=== PATIENT | female | born 1960 | race Hispanic/Latino ===

== ENCOUNTER 2018-09-29 20:41 | Emergency (ER) | payer SELFPAY ==
[2018-09-29 21:30] LABS: APPEARANCE,URINE Clear (CLEAR); BILIRUBIN,URINE Negative (NEGATIVE); COLOR,URINE Yellow (YELLOW); GLUCOSE, URINE (UA) >=1000 mg/dL (NEGATIVE); KETONES,URINE Trace mg/dL (NEGATIVE); LEUKOCYTE ESTERASE ,URINE Negative (NEGATIVE); NITRATE,URINE Negative (NEGATIVE); OCCULT BLOOD,URINE Negative (NEGATIVE); PH,URINE 5.5 (5.0-8.0); PROTEIN,URINE Trace (NEGATIVE); UROBILINOGEN,URINE 0.2 mg/dL (0.2-1.0)
[2018-09-29] MEDS ORDERED: SODIUM CHLORIDE 0.9% 1000ML 2,000 ML IV ONE (21:33)
[2018-09-29] MEDS ORDERED: ACETAMINOPHEN EXTRA STRENGTH 500 MG TABLET ONE (21:34)
[2018-09-29] MEDS ORDERED: SODIUM CHLORIDE 0.9% 100 ML IV ONE (21:34)
[2018-09-29] MEDS ORDERED: CEFTRIAXONE SODIUM 1 GM ONE (21:34)
[2018-09-29 21:38] LABS: BACTERIA,URINE Few /HPF (None Seen); RBC,URINE 0-1 /HPF (0-1); SQUAMOUS EPITHELIAL CELL,UR 0-2 /HPF (0-2); WBC,URINE 0-1 /HPF (0-1)
[2018-09-29 21:41] LABS: BASOPHILS % (AUTO) 0.3 % (0.0-5.0); HEMATOCRIT 35.1 % (36-48); LYMPHOCYTES % (AUTO) 13.8 % (21.0-51.0); MEAN CORPUSCULAR HEMOGLOBIN 30.1 pg (27.0-33.0); MEAN CORPUSCULAR HGB CONC 34.8 g/dL (32.0-36.0); MEAN CORPUSCULAR VOLUME 86.6 fL (79-99); MONOCYTES % (AUTO) 7.4 % (3.0-13.0); NEUTROPHILS % (AUTO) 78.5 % (40.0-77.0); PLATELET COUNT (AUTO) 196 K/uL (130-400); RED BLOOD CELL COUNT(AUTO) 4.05 MIL/uL (4.00-5.50); RED CELL DISTRIBUTION WIDTH 12.1 % (11.0-15.5); WHITE BLOOD COUNT (AUTO) 7.9 K/uL (4.8-10.8)
[2018-09-29 21:42] LABS: RAPID GROUP A STREP NEGATIVE (NEGATIVE)
[2018-09-29 21:50] LABS: INR 0.98 (0.85-1.15); PARTIAL THROMBOPLASTIN TIME 30.3 SEC (26.3-35.5); PROTHROMBIN TIME 10.3 SEC (9.6-11.6)
[2018-09-29 21:56] LABS: CARBON DIOXIDE 24 mmol/L (21-32); CHLORIDE 98 mmol/L (101-111); CREATININE 0.9 mg/dL (0.5-1.5); GLOMERULAR FILTR. RATE CALC 69 mL/min (>60); GLUCOSE,RANDOM 289 mg/dL (70-105); POTASSIUM 3.8 mmol/L (3.5-5.1); SODIUM SERUM 132 mmol/L (136-145); UREA NITROGEN, BLOOD 15 mg/dL (7-18)
[2018-09-29 22:16] LABS: ALANINE AMINOTRANSFERASE 30 U/L (12-78); ALBUMIN 3.7 g/dL (3.5-5.0); ASPARTATE AMINOTRANSFERASE 21 U/L (10-37); BILIRUBIN,TOTAL 0.6 mg/dL (0.2-1.0); CREATINE KINASE, TOTAL 37 U/L (21-232); MYOGLOBIN 21 ng/mL (10-92); TOTAL PROTEIN, SERUM 7.8 g/dL (6.0-8.3); TROPONIN I < 0.04 ng/mL (0.00-0.06)
[2018-09-29] MEDS ORDERED: IBUPROFEN 600 MG TABLET ONE (23:03)
== END 2018-09-30 00:33 | disposition home or self-care (01) ==
LOC: EDH 20:41
DX: J11.1 Influenza due to unidentified influenza virus with other respiratory manifestations (principal); E11.9 Type 2 diabetes mellitus without complications; I11.0 Hypertensive heart disease with heart failure; I50.9 Heart failure, unspecified; E78.5 Hyperlipidemia, unspecified; E07.9 Disorder of thyroid, unspecified; F32.9 Major depressive disorder, single episode, unspecified; Z88.8 Allergy status to other drugs, medicaments and biological substances; Z90.710 Acquired absence of both cervix and uterus
CPT/HCPCS: 36415 ×2; 71045; 80053; 81001; 82550; 83605; 83874; 84484; 85025; 85610; 85730; 87040 ×2; 87088; 87804 ×2; 87880; 93005; 96374; 99285; J0696; J7030

== ENCOUNTER 2018-10-02 14:58 | Emergency (ER) | payer SELFPAY ==
[2018-10-02] MEDS ORDERED: ACETAMINOPHEN EXTRA STRENGTH 500 MG TABLET ONE (15:25)
[2018-10-02 15:31] LABS: BASOPHILS % (AUTO) 0.7 % (0.0-5.0); HEMATOCRIT 32.3 % (36-48); LYMPHOCYTES % (AUTO) 16.8 % (21.0-51.0); MEAN CORPUSCULAR HEMOGLOBIN 30.3 pg (27.0-33.0); MEAN CORPUSCULAR HGB CONC 35.7 g/dL (32.0-36.0); MEAN CORPUSCULAR VOLUME 84.7 fL (79-99); MONOCYTES % (AUTO) 5.5 % (3.0-13.0); PLATELET COUNT (AUTO) 176 K/uL (130-400); RED BLOOD CELL COUNT(AUTO) 3.81 MIL/uL (4.00-5.50); RED CELL DISTRIBUTION WIDTH 12.2 % (11.0-15.5); WHITE BLOOD COUNT (AUTO) 4.1 K/uL (4.8-10.8)
[2018-10-02 15:46] LABS: CREATININE 0.9 mg/dL (0.5-1.5); POTASSIUM 3.5 mmol/L (3.5-5.1)
[2018-10-02 15:47] LABS: INR 0.96 (0.85-1.15); PARTIAL THROMBOPLASTIN TIME 32.6 SEC (26.3-35.5); PROTHROMBIN TIME 10.1 SEC (9.6-11.6)
[2018-10-02 15:51] LABS: ALBUMIN 3.6 g/dL (3.5-5.0); BILIRUBIN,TOTAL 0.7 mg/dL (0.2-1.0); TOTAL PROTEIN, SERUM 7.9 g/dL (6.0-8.3)
[2018-10-02] MEDS ORDERED: SODIUM CHLORIDE 0.9% 1000ML 1,000 ML IV ONE (16:26)
== END 2018-10-02 22:06 | disposition home or self-care (01) ==
LOC: EDH 14:58
DX: R50.9 Fever, unspecified (principal); R05 Cough; M79.18 Myalgia, other site; I11.0 Hypertensive heart disease with heart failure; E11.9 Type 2 diabetes mellitus without complications; I50.9 Heart failure, unspecified; E07.9 Disorder of thyroid, unspecified; E78.5 Hyperlipidemia, unspecified; F32.9 Major depressive disorder, single episode, unspecified
CPT/HCPCS: 36415; 71045; 80053; 82550; 83605; 84484 ×2; 85025; 85610; 85730; 86757; 87040 ×2; 87804 ×2; 99285; J7030

== ENCOUNTER 2021-09-07 20:40 | Emergency (ER) | payer OTHER ==
[~2021-09-07] VITALS: Ht 154.9 cm; Wt 63.5 kg
[2021-09-07 21:18] LABS: BASOPHILS % (AUTO) 0.4 % (0.0-5.0); EOSINOPHILS % (AUTO) 0.9 % (0.0-8.0); HEMATOCRIT 35.4 % (36-48); LYMPHOCYTES % (AUTO) 20.3 % (21.0-51.0); MEAN CORPUSCULAR HEMOGLOBIN 29.2 pg (27.0-33.0); MEAN CORPUSCULAR HGB CONC 32.5 g/dL (32.0-36.0); MEAN CORPUSCULAR VOLUME 89.8 fL (79-99); MONOCYTES % (AUTO) 7.7 % (3.0-13.0); NEUTROPHILS % (AUTO) 70.1 % (40.0-77.0); PLATELET COUNT (AUTO) 272 K/uL (130-400); RED BLOOD CELL COUNT(AUTO) 3.94 MIL/uL (4.00-5.50); RED CELL DISTRIBUTION WIDTH 12.3 % (11.0-15.5); WHITE BLOOD COUNT (AUTO) 10.8 K/uL (4.8-10.8)
[2021-09-07 21:28] LABS: CREATININE 0.9 mg/dL (0.5-1.5); POTASSIUM 4.2 mmol/L (3.5-5.1)
[2021-09-07 21:32] LABS: APPEARANCE,URINE Clear (CLEAR); BILIRUBIN,URINE Negative (NEGATIVE); COLOR,URINE Yellow (YELLOW); GLUCOSE, URINE (UA) >=1000 mg/dL (NEGATIVE); KETONES,URINE Negative (NEGATIVE); LEUKOCYTE ESTERASE ,URINE Negative (NEGATIVE); NITRATE,URINE Negative (NEGATIVE); OCCULT BLOOD,URINE Negative (NEGATIVE); PROTEIN,URINE Negative (NEGATIVE); UROBILINOGEN,URINE 0.2 mg/dL (0.2-1.0)
[2021-09-07 21:32] LABS: ALBUMIN 4.2 g/dL (3.5-5.0); BILIRUBIN,TOTAL 0.3 mg/dL (0.2-1.0); TOTAL PROTEIN, SERUM 7.5 g/dL (6.0-8.3)
[2021-09-07 21:43] LABS: BACTERIA,URINE None Seen /HPF (None Seen); MUCUS,URINE Rare LPF (None Seen); RBC,URINE 0-1 /HPF (0-1); SQUAMOUS EPITHELIAL CELL,UR Rare /HPF (0-2); WBC,URINE 0-1 /HPF (0-1)
[2021-09-07] MEDS ORDERED: 0.9%NACL 1000ML 1,000 ML IV ONE (22:30)
[2021-09-07] MEDS ORDERED: DiphenhydrAMINE HCL 50 MG/ML VIAL IV ONE (22:30)
[2021-09-07] MEDS ORDERED: ONDANSETRON 4MG INJ IVP ONE (22:30)
[2021-09-07] MEDS ORDERED: ONDA4TAB10 PO (23:59)
[2021-09-07] MEDS ORDERED: METO-296 PO (23:59)
[2021-09-07] MEDS ORDERED: MECL-160 PO (23:59)
[2021-09-08 00:07] VITALS: BP 136/74
== END 2021-09-08 00:26 | disposition home or self-care (01) ==
LOC: EDH 20:40
DX: E86.9 Volume depletion, unspecified (principal); H81.10 Benign paroxysmal vertigo, unspecified ear; E11.9 Type 2 diabetes mellitus without complications; E78.00 Pure hypercholesterolemia, unspecified; I10 Essential (primary) hypertension; J44.9 Chronic obstructive pulmonary disease, unspecified; Z79.899 Other long term (current) drug therapy
CPT/HCPCS: 36415; 70450; 71045; 80053; 81001; 84443; 84484; 85025; 93005; 96361; 96374; 96375; 99285; J1200; J2405; J7030

== ENCOUNTER 2022-04-11 15:54 | Emergency (ER) | payer OTHER ==
[~2022-04-11] VITALS: Ht 162.6 cm; Wt 64.9 kg
[~2022-04-11 15:54] MED LIST: MECL-160 PO; METO-296 PO; ONDA4TAB10 PO
[2022-04-11] MEDS ORDERED: ONDANSETRON 4MG INJ IVP ONE (17:00)
[2022-04-11] MEDS ORDERED: 0.9%NACL 1000ML 1,000 ML IV ONE (17:00)
[2022-04-11 17:07] LABS: BASOPHILS % (AUTO) 0.2 % (0.0-5.0); HEMATOCRIT 38.5 % (36-48); LYMPHOCYTES % (AUTO) 22.9 % (21.0-51.0); MEAN CORPUSCULAR HEMOGLOBIN 29.1 pg (27.0-33.0); MEAN CORPUSCULAR HGB CONC 32.2 g/dL (32.0-36.0); MEAN CORPUSCULAR VOLUME 90.4 fL (79-99); MONOCYTES % (AUTO) 6.9 % (3.0-13.0); NEUTROPHILS % (AUTO) 68.4 % (40.0-77.0); PLATELET COUNT (AUTO) 253 K/uL (130-400); RED BLOOD CELL COUNT(AUTO) 4.26 MIL/uL (4.00-5.50); RED CELL DISTRIBUTION WIDTH 12.3 % (11.0-15.5); WHITE BLOOD COUNT (AUTO) 9.4 K/uL (4.8-10.8)
[2022-04-11 17:15] LABS: POTASSIUM 4.3 mmol/L (3.5-5.1)
[2022-04-11 17:20] LABS: ALBUMIN 4.1 g/dL (3.5-5.0); BILIRUBIN,TOTAL 0.3 mg/dL (0.2-1.0); TOTAL PROTEIN, SERUM 7.3 g/dL (6.0-8.3)
[2022-04-11 17:36] VITALS: BP 138/65
[2022-04-11 18:01] LABS: APPEARANCE,URINE Clear (CLEAR); BILIRUBIN,URINE Negative (NEGATIVE); COLOR,URINE Yellow (YELLOW); GLUCOSE, URINE (UA) >=1000 mg/dL (NEGATIVE); KETONES,URINE Negative (NEGATIVE); LEUKOCYTE ESTERASE ,URINE Negative (NEGATIVE); NITRATE,URINE Negative (NEGATIVE); OCCULT BLOOD,URINE Negative (NEGATIVE); PROTEIN,URINE Negative (NEGATIVE); UROBILINOGEN,URINE 0.2 mg/dL (0.2-1.0)
[2022-04-11 18:11] LABS: BACTERIA,URINE Rare /HPF (None Seen); RBC,URINE 0-1 /HPF (0-1); SQUAMOUS EPITHELIAL CELL,UR Rare /HPF (0-2); TRANSITIONAL EPI CELLS,URINE Rare /HPF (None Seen); WBC,URINE 0-1 /HPF (0-1)
== END 2022-04-11 18:34 | disposition home or self-care (01) ==
LOC: EDH 15:54
DX: R53.1 Weakness (principal); E86.9 Volume depletion, unspecified; E11.9 Type 2 diabetes mellitus without complications; E78.00 Pure hypercholesterolemia, unspecified; I10 Essential (primary) hypertension; E03.9 Hypothyroidism, unspecified; Z98.890 Other specified postprocedural states; Z88.8 Allergy status to other drugs, medicaments and biological substances; Z79.899 Other long term (current) drug therapy
CPT/HCPCS: 36415; 80053; 81001; 84484; 85025; 93005; 96361; 96374; 99284; J2405; J7030

== ENCOUNTER 2025-06-07 12:33 | Emergency (ER) | payer SELFPAY ==
[~2025-06-07] VITALS: Ht 165.1 cm; Wt 65.8 kg
[~2025-06-07 12:33] MED LIST changes: -MECL-160 PO; +MECL-302 PO; +ONDA-243 PO; -ONDA4TAB10 PO
[2025-06-07 13:37] VITALS: BP 150/72; PULSE 96; RESP 16; TEMP 98.1; O2SAT 98
--- NOTE | 2025-06-07 13:52 | HMCIMG ---
EXAM: CR right Knee, 3 View. CLINICAL HISTORY: pain COMPARISON: None provided. FINDINGS: No acute fracture or aggressive appearing osseous lesion. There is medial compartment predominant mild tricompartmental right knee joint osteoarthritis. Small knee joint effusion. Mild prepatellar bursitis. Incidental atherosclerotic vascular calcifications are noted. IMPRESSION: 1. No acute osseous injury. 2. Mild tricompartmental osteoarthritis, most pronounced in medial compartment, with small knee joint effusion and mild prepatellar bursitis. /[place]
--- NOTE | 2025-06-07 14:04 | ERN ---
ED Note History of Present Illness Stated Complaint: KNEE INJURY Chief Complaint: Knee Injury/Swelling Time Seen by MD: 12:52 Time Seen by Midlevel: 12:58 Dictation: 64-year-old female states was walking wanted to turn to the right and pivoted, states she heard a pop on her knee and began with knee pain. Denies any fall. Allergies: Coded Allergies: sitagliptin (Unverified Allergy, Unknown, 09/07/21) Home Meds Active Scripts Metoclopramide HCl (Reglan) 10 Mg Tablet, 10 MG PO TIDP, #20 TAB 0 Refills Prov:SKYLAR FREEMAN MD 09/07/21 Meclizine HCl (Meclizine HCl) 25 Mg Tablet, 25 MG PO TIDP, #20 TAB 0 Refills Prov:SKYLAR FREEMAN MD 09/07/21 Ondansetron (Ondansetron Odt) 4 Mg Tab.rapdis, 4 MG PO Q6HPRN, #20 TAB 0 Refills Prov:SKYLAR FREEMAN MD 09/07/21 Past Medical History Past Medical History: Diabetes-Type II, High Cholesterol, Hypertension, Hyperthyroid Surgical History: Hysterectomy Surgical History Other: OVARY Social History: Other Review of System Dictation Constitutional: Negative for fever,chills, and weight loss Eyes: Negative for injury, pain,redness, and discharge ENT: Negative for injury,pain or swelling Cardiovascular: Negative for chest pain, palpitations, and edema Respiratory: Negative for shortness of breath, cough, and wheezing, Abdomen/GI: Negative for abdominal pain, nausea, vomiting, diarrhea, and constipation Back: Negative for injury and pain : Negative for injury, bleeding and discharge MS/Extremity: Negative for injury and deformity,, complaining of knee pain right Skin: Negative for rash, and discoloration Neuro: Negative for headache, weakness, numbness, tingling, and seizure Psych: Negative for suicide ideation, homicidal ideation, and hallucinations Review of Systems: was completed Initial Vital Sign VS Vital Signs Date Time Temp Pulse Resp B/P (MAP) Pulse Ox O2 Delivery O2 Flow Rate FiO2 06/07/25 13:02 97.9 98 20 157/75 100 Room Air 0 06/07/25 13:37 21 Physical Exam Dictation General: awake, alert, NAD Head/Face: Normocephalic, atraumatic Eyes: PERRL, EOMI, vision at baseline ENT: oral cavity clear, TMs clear, no signs of infection Neck: Trachea midline, supple, no nuchal rigidity Cardiovascular: RRR, normal S1/S2, No MRGs, no JVD Respiratory: CTAB, no respiratory distress, No rales or wheezes Abdomen: Soft, non-tender, non-distended, normal bowel sounds, no guarding or rebound. Skin: Warm, dry, normal turgor, no rash MS/Extremity: Pulses equal, no cyanosis, neurovascular intact, FROM, minimal swelling noted to the right knee. Neuro: COAx4, GCS 15, strength 5/5, CN 2-12 intact, normal cerebellar exam, normal gait, Psych: Normal behavior, mood, and affect normal Results (Laboratory/Radiology) X-RAY Comment: [address] [address] IMAGING REPORT Signed PATIENT: SUNIL HUIZAR MR#: [id number] : 1960 SEX: F AGE: 64 LOCATION: [facility] ORDER 1311 STATUS: REG REPORT#: [id number] SERVICE 1309 REASON: pain ORDERING PHYSICIAN: MIKAEL SOLORIO NP PROCEDURE: KNEE 3V RT - KNEE 3VWS RT EXAM: CR right Knee, 3 View. CLINICAL HISTORY: pain COMPARISON: None provided. FINDINGS: No acute fracture or aggressive appearing osseous lesion. There is medial compartment predominant mild tricompartmental right knee joint osteoarthritis. Small knee joint effusion. Mild prepatellar bursitis. Incidental atherosclerotic vascular calcifications are noted. IMPRESSION: 1. No acute osseous injury. 2. Mild tricompartmental osteoarthritis, most pronounced in medial compartment, with small knee joint effusion and mild prepatellar bursitis. /[place] DICTATED BY: THELMA TRAN Jr., MD DATE: 06/07/251450 ELECTRONICALLY SIGNED BY: THELMA TRAN Jr., MD DATE: 07/07/25 1451 ED Course ED Course Orders Procedure Category Date Status Time Tramadol Hcl (Ultram) PHA 06/07/25 Complete 13:09 Ketorolac PHA 06/07/25 Complete Tromethamine 15mg/Ml 13:09 Knee 3vws Rt RAD 06/07/25 Resulted 13:09 Current Medications Medications (Trade) Dose Ordered Sig/[place] Route PRN Reason Start Time Stop Time Status Last Admin Dose Admin Ketorolac Tromethamine (toRADol) 15 mg ONCE STAT IM 06/07/25 13:09 06/07/25 13:13 DC 06/07/25 13:33 Tramadol HCl (UltRAM) 50 mg ONCE STAT PO 06/07/25 13:09 06/07/25 13:13 DC 06/07/25 13:33 Vital Signs Date Time Temp Pulse Resp B/P (MAP) Pulse Ox O2 Delivery O2 Flow Rate FiO2 06/07/25 13:37 98.1 96 16 150/72 98 Room Air* 0 21 06/07/25 13:02 97.9 98 20 157/75 100 Room Air 0 Medical Decision Making MDM MDM: 64-year-old female states was walking wanted to turn to the right and pivoted, states she heard a pop on her knee and began with knee pain. Denies any fall. X-ray of the knee does not show any acute signs find. X-ray of the knee shows Mild tricompartmental osteoarthritis, most pronounced in medial compartment, with small knee joint effusion and mild prepatellar bursitis. Patient we will be placed in a knee brace and to follow up outpatient with her PCP. Educated to take NSAIDs [id number] for pain control as swelling. Educated to rest and ice as needed. Discussed to return if symptoms worsen. Patient verbalized understanding, answered all questions. Differential diagnosis: Knee dislocation, tendon injury, bursitis, knee fracture Rationale: Tests considered and ordered secondary to shared decision making include: Previous outside records reviewed: Old ER visits. Risk of complication and/or morbidity or mortality of patient management: None Medications-Per medication reconciliation Need for hospitalization: Patient does not meet criteria for hospitalization. Need for emergency major/minor surgery: No There are no social concerns with this patient. Prescription drug management Prescriptions will include symptomatic care Patient's prior external medical records from other ER visits were reviewed by me as indicated. Prior testing and results from previous visits were reviewed. Prior tests were taken into account with medical decision making and resource utilization, independent historian/historians were used to obtain complete [facility] history. I independently interpreted the test that were performed, results were reviewed by me and considered findings on radiology if ordered. Medical management and examination interpretation discussions were had by me with other qualified healthcare professionals as indicated for the patient's care. DX & DISP Disposition: Discharge Departure Impression: Primary Impression: Knee pain Condition: Stable Additional Instructions: You can take anti-inflammatories [id number] for pain control. Follow up with your PCP in 1-2 days. You can also follow up with the orthopedic surgeon that I will give her information to. Referrals: KIERAN GILLETTE MD (PCP) GALE BROOKS MD Time of Disposition: 14:03 I have reviewed the case, and I agree with, Diagnosis and Plan MIKAEL SOLORIO NP Jun 07, 2025 14:04
== END 2025-06-07 14:11 | disposition home or self-care (01) ==
LOC: EDH 12:33
DX: M25.561 Pain in right knee (principal); E11.9 Type 2 diabetes mellitus without complications; E78.00 Pure hypercholesterolemia, unspecified; I10 Essential (primary) hypertension; Z90.710 Acquired absence of both cervix and uterus
CPT/HCPCS: 99283; 29505; 73562; 96372; J1885